=== PATIENT | female | born 1940 | race Two or more races ===

== ENCOUNTER 2020-11-12 13:09 | Outpatient (CLI) | payer OTHER | END 2020-11-12 15:00 | disposition home or self-care (01) | LOC: ASH CLINIC 13:09 | PROVIDERS: ATTEND Emergency Medicine Pediatric Emergency Medicine | DX: Z23 Encounter for immunization (principal); U07.1 COVID-19 ==

== ENCOUNTER 2021-02-17 08:38 | Inpatient (IN) | payer OTHER ==
[~2021-02-17] VITALS: Ht 165.1 cm; Wt 90.7 kg
[2021-02-17] MEDS ORDERED: CELEXA20 MG (08:51)
[2021-02-17] MEDS ORDERED: NORVASC5 MG (08:51)
[2021-02-17] MEDS ORDERED: XANAX XR0.5 MG (08:52)
[2021-02-17] MEDS ORDERED: INTESTINEX680 M1 (08:52)
[2021-02-17] MEDS ORDERED: ATACAND4 MG (08:53)
== END 2021-02-24 17:25 | disposition home or self-care (01) | DRG 92 ==
LOC: ER 08:38 → MEDI 02-18 10:43
PROVIDERS: ADMIT Specialist; ATTEND Specialist
PROC: CB2YYZZ Tomographic (Tomo) Nuclear Medicine Imaging of Respiratory System using Other Radionuclide (ICD-10-PCS; principal; 2021-02-20)
PROC: B030YZZ Magnetic Resonance Imaging (MRI) of Brain using Other Contrast (ICD-10-PCS; 2021-02-20)
DX: I67.1 Cerebral aneurysm, nonruptured (principal); H49.02 Third [oculomotor] nerve palsy, left eye; I67.6 Nonpyogenic thrombosis of intracranial venous system; H02.422 Myogenic ptosis of left eyelid; I10 Essential (primary) hypertension; F41.9 Anxiety disorder, unspecified; Z20.822 Contact with and (suspected) exposure to COVID-19
CPT/HCPCS: 70496; 70552; 71275

== ENCOUNTER 2021-03-02 10:36 | Outpatient (CLI) | payer OTHER ==
[~2021-03-02 10:36] MED LIST: ATACAND4 MG; CELEXA20 MG; INTESTINEX680 M1; NORVASC5 MG; XANAX XR0.5 MG
== END 2021-03-02 10:42 | disposition home or self-care (01) ==
LOC: RAD 10:36
PROVIDERS: ATTEND Internal Medicine
DX: I10 Essential (primary) hypertension (principal); Z01.811 Encounter for preprocedural respiratory examination